=== PATIENT | female | born 1990 | race Caucasian/White ===

== ENCOUNTER 2019-07-16 12:48 | Outpatient (RCR) | payer OTHER | END 2019-10-14 | disposition home or self-care (01) | LOC: WSOH | DX: M25.571 Pain in right ankle and joints of right foot (principal); F32.9 Major depressive disorder, single episode, unspecified; E07.9 Disorder of thyroid, unspecified; Z90.49 Acquired absence of other specified parts of digestive tract; Z90.710 Acquired absence of both cervix and uterus; Y99.0 Civilian activity done for income or pay ==

== ENCOUNTER 2024-02-25 13:05 | Emergency (ER) | payer BC ==
[~2024-02-25] VITALS: Ht 165.1 cm; Wt 128.2 kg
[2024-02-25 13:09] VITALS: TEMP 96.8
[2024-02-25 13:40] LABS: BASO # 0.1 K/mm3 (0.0-0.2); BASO % 0.6 % (0.0-2.0); EOS # 0.3 K/mm3 (0.0-0.7); EOS % 3.9 % (0.0-4.0); GRAN # 4.7 K/mm3 (1.4-6.5); GRAN % 57.1 % (42.2-75.2); HEMATOCRIT 39.5 % (37.0-47.0); HEMOGLOBIN 12.3 g/dl (12.5-16.0); LYMPH # 2.7 K/mm3 (1.2-3.4); LYMPH % 33.1 % (20.0-51.0); MEAN CELL VOLUME 85 fl (80.0-100.0); MEAN CORPUSCULAR HEMOGLOBIN 26 pg (27-31); MEAN CORPUSCULAR HGB CONC 31 g/dl (33.0-37.0); MONO # 0.4 K/mm3 (0.1-0.6); MONO % 5.1 % (1.7-9.3); PLATELET COUNT 278 K/mm3 (130-400); RED BLOOD COUNT 4.66 M/mm3 (4.10-5.30); REDCELL DISTRIBUTION WIDTH-CV 13.4 % (11.5-14.5)
[2024-02-25] MEDS ORDERED: NS 1,000 ML IV ONE (13:45)
[2024-02-25 14:13] LABS: THYROID STIMULATING HORMONE 1.489 uIU/mL (0.350-4.940)
[2024-02-25] MEDS ORDERED: Iohexol 300 - 100 ML VIAL IV ONE (14:39)
[2024-02-25] MEDS ORDERED: NS 100 ML IV SCH (14:40)
[2024-02-25 14:59] LABS: ALANINE AMINOTRANSFERASE 14 U/L (0-55); ALBUMIN 3.3 g/dL (3.5-5.0); ALKALINE PHOSPHATASE 88 U/L (40-150); ANION GAP 16 mmol/L (7-16); AST,SGOT 17 U/L (5-34); BILIRUBIN,TOTAL 0.3 mg/dL (0.2-1.2); BLOOD UREA NITROGEN 8 mg/dL (7-19); CALCIUM 8.2 mg/dL (8.4-10.2); CHLORIDE 109 mEq/L (98-107); CREATININE, serum 0.76 mg/dL (0.57-1.11); GLUCOSE 132 mg/dL (70-99); SODIUM 140 mEq/L (136-145); TOTAL PROTEIN 6.5 g/dl (6.2-8.1)
[2024-02-25 15:37] LABS: TROPONIN-I < 0.010 ng/mL (0.00-0.033)
[2024-02-25] MEDS ORDERED: TOPROL XL 25MG25 MG PO (15:54)
[2024-02-25 16:00] VITALS: BP 117/75; PULSE 74
== END 2024-02-25 16:10 | disposition home or self-care (01) ==
LOC: COL.ER 13:05
PROVIDERS: Emergency Medicine
DX: R07.89 Other chest pain (principal); R00.2 Palpitations
CPT/HCPCS: J7030; Q9967